=== PATIENT | male | born 1945 | race Caucasian/White ===

== ENCOUNTER 2018-05-17 05:41 | Emergency (ER) | payer MEDICARE ==
[2018-05-17] MEDS ORDERED: Adacel (T-DAP) 0.5 ML SYRINGE ONE (06:09)
== END 2018-05-17 06:35 | disposition home or self-care (01) ==
LOC: BURERS 05:41
DX: S90.414A Abrasion, right lesser toe(s), initial encounter (principal); E11.621 Type 2 diabetes mellitus with foot ulcer; E11.9 Type 2 diabetes mellitus without complications; E78.5 Hyperlipidemia, unspecified; I10 Essential (primary) hypertension; M10.9 Gout, unspecified; F17.220 Nicotine dependence, chewing tobacco, uncomplicated; Z87.442 Personal history of urinary calculi; Z79.82 Long term (current) use of aspirin; Z79.01 Long term (current) use of anticoagulants; Z79.899 Other long term (current) drug therapy; X58.XXXA Exposure to other specified factors, initial encounter
CPT/HCPCS: 90715; 99283

== ENCOUNTER 2018-07-02 14:35 | Inpatient (IN) | payer MEDICARE ==
[2018-07-02] MEDS ORDERED: Acetaminophen 325 MG TAB PO PRN (18:02)
[2018-07-02] MEDS ORDERED: Bisacodyl 5 MG TAB PO PRN (18:02)
[2018-07-02] MEDS ORDERED: Non-Formulary Item 1 EACH (Levothyroxine Sodium [Levothyroxine Sodium] 1 TAB) PO SCH (21:00)
[2018-07-02] MEDS: Carvedilol 3.125 MG TAB PO SCH (21:29)
[2018-07-02] MEDS: Digoxin 0.25 MG TAB PO SCH (21:30)
[2018-07-02] MEDS: Tamsulosin HCl 0.4 MG CAP PO SCH (21:31)
[2018-07-02] MEDS: Ciprofloxacin 500 MG TAB PO SCH (21:31)
[2018-07-02] MEDS: metFORMIN 500 MG TAB PO SCH (21:32)
[2018-07-02] MEDS: Pravastatin Sodium 20 MG TAB PO SCH (21:32)
[2018-07-02] MEDS: Levothyroxine Sodium 25 MCG TAB PO SCH (22:00)
[2018-07-02] MEDS: Levothyroxine Sodium 112 MCG TAB PO SCH (22:00)
[2018-07-02] MEDS: Zolpidem Tartrate 5 MG TAB PO PRN (22:00)
[2018-07-03] MEDS: Losartan Potassium 50 MG TAB PO SCH (09:12)
[2018-07-03] MEDS: Allopurinol 100 MG TAB PO SCH (09:12)
[2018-07-03] MEDS: Ciprofloxacin 500 MG TAB PO SCH ×2 (09:13→21:21)
[2018-07-03] MEDS: Aspirin Chewable 81 MG TAB PO SCH (09:14)
[2018-07-03] MEDS: Furosemide 40 MG TAB PO SCH (09:14)
[2018-07-03] MEDS: Spironolactone 25 MG TAB PO SCH (09:14)
[2018-07-03] MEDS: metFORMIN 500 MG TAB PO SCH ×2 (09:14→21:23)
[2018-07-03] MEDS: Carvedilol 3.125 MG TAB PO SCH ×2 (09:15→21:21)
[2018-07-03] MEDS: Pravastatin Sodium 20 MG TAB PO SCH (21:21)
[2018-07-03] MEDS: Levothyroxine Sodium 25 MCG TAB PO SCH (21:22)
[2018-07-03] MEDS: Tamsulosin HCl 0.4 MG CAP PO SCH (21:22)
[2018-07-03] MEDS: Levothyroxine Sodium 112 MCG TAB PO SCH (21:22)
[2018-07-03] MEDS: Digoxin 0.25 MG TAB PO SCH (21:22)
[2018-07-03] MEDS: Zolpidem Tartrate 5 MG TAB PO PRN (22:14)
[2018-07-04] MEDS: metFORMIN 500 MG TAB PO SCH ×2 (09:47→20:57)
[2018-07-04] MEDS: Losartan Potassium 50 MG TAB PO SCH (09:48)
[2018-07-04] MEDS: Ciprofloxacin 500 MG TAB PO SCH ×2 (09:48→20:56)
[2018-07-04] MEDS: Allopurinol 100 MG TAB PO SCH (09:49)
[2018-07-04] MEDS: Spironolactone 25 MG TAB PO SCH (09:50)
[2018-07-04] MEDS: Furosemide 40 MG TAB PO SCH (09:50)
[2018-07-04] MEDS: Carvedilol 3.125 MG TAB PO SCH ×2 (09:50→20:56)
[2018-07-04] MEDS: Enoxaparin Sodium 100 MG/ML SYRINGE SC SCH ×2 (09:51→20:57)
[2018-07-04] MEDS: Aspirin Chewable 81 MG TAB PO SCH (09:57)
[2018-07-04] MEDS: Pravastatin Sodium 20 MG TAB PO SCH (20:56)
[2018-07-04] MEDS: Tamsulosin HCl 0.4 MG CAP PO SCH (20:56)
[2018-07-04] MEDS: Levothyroxine Sodium 112 MCG TAB PO SCH (20:56)
[2018-07-04] MEDS: Digoxin 0.25 MG TAB PO SCH (20:57)
[2018-07-04] MEDS: Levothyroxine Sodium 25 MCG TAB PO SCH (20:57)
[2018-07-04] MEDS: Zolpidem Tartrate 5 MG TAB PO PRN (21:32)
[2018-07-05] MEDS: Losartan Potassium 50 MG TAB PO SCH (08:20)
[2018-07-05] MEDS: Carvedilol 3.125 MG TAB PO SCH ×2 (08:22→21:27)
[2018-07-05] MEDS: Allopurinol 100 MG TAB PO SCH (08:22)
[2018-07-05] MEDS: metFORMIN 500 MG TAB PO SCH ×2 (08:23→21:27)
[2018-07-05] MEDS: Spironolactone 25 MG TAB PO SCH (08:25)
[2018-07-05] MEDS: Ciprofloxacin 500 MG TAB PO SCH ×2 (08:26→21:27)
[2018-07-05] MEDS: Furosemide 40 MG TAB PO SCH (08:26)
[2018-07-05] MEDS: Enoxaparin Sodium 100 MG/ML SYRINGE SC SCH ×2 (08:27→21:28)
[2018-07-05] MEDS: Pravastatin Sodium 20 MG TAB PO SCH (21:27)
[2018-07-05] MEDS: Tamsulosin HCl 0.4 MG CAP PO SCH (21:27)
[2018-07-05] MEDS: Digoxin 0.25 MG TAB PO SCH (21:28)
[2018-07-05] MEDS: Levothyroxine Sodium 25 MCG TAB PO SCH (21:28)
[2018-07-05] MEDS: Levothyroxine Sodium 112 MCG TAB PO SCH (21:28)
[2018-07-05] MEDS: Zolpidem Tartrate 5 MG TAB PO PRN (21:58)
[2018-07-06] MEDS: Allopurinol 100 MG TAB PO SCH (08:13)
[2018-07-06] MEDS: Carvedilol 3.125 MG TAB PO SCH ×2 (08:14→21:34)
[2018-07-06] MEDS: Ciprofloxacin 500 MG TAB PO SCH ×2 (08:14→21:35)
[2018-07-06] MEDS: Spironolactone 25 MG TAB PO SCH (08:15)
[2018-07-06] MEDS: Furosemide 40 MG TAB PO SCH (08:15)
[2018-07-06] MEDS: Losartan Potassium 50 MG TAB PO SCH (08:16)
[2018-07-06] MEDS: Enoxaparin Sodium 100 MG/ML SYRINGE SC SCH ×2 (08:17→21:35)
[2018-07-06] MEDS: metFORMIN 500 MG TAB PO SCH ×2 (08:17→21:35)
[2018-07-06] MEDS ORDERED: Polyethylene Glycol 3350 17 GM Packet PO PRN (14:40)
[2018-07-06] MEDS: Levothyroxine Sodium 25 MCG TAB PO SCH (21:34)
[2018-07-06] MEDS: Levothyroxine Sodium 112 MCG TAB PO SCH (21:34)
[2018-07-06] MEDS: Pravastatin Sodium 20 MG TAB PO SCH (21:34)
[2018-07-06] MEDS: Digoxin 0.25 MG TAB PO SCH (21:35)
[2018-07-06] MEDS: Tamsulosin HCl 0.4 MG CAP PO SCH (21:35)
[2018-07-06] MEDS: Zolpidem Tartrate 5 MG TAB PO PRN (22:01)
[2018-07-07] MEDS: Allopurinol 100 MG TAB PO SCH (09:24)
[2018-07-07] MEDS: Spironolactone 25 MG TAB PO SCH (09:24)
[2018-07-07] MEDS: metFORMIN 500 MG TAB PO SCH ×2 (09:24→21:25)
[2018-07-07] MEDS: Furosemide 40 MG TAB PO SCH (09:26)
[2018-07-07] MEDS: Ciprofloxacin 500 MG TAB PO SCH ×2 (09:26→21:25)
[2018-07-07] MEDS: Losartan Potassium 50 MG TAB PO SCH (09:27)
[2018-07-07] MEDS: Carvedilol 3.125 MG TAB PO SCH ×2 (09:27→21:25)
[2018-07-07] MEDS: Enoxaparin Sodium 100 MG/ML SYRINGE SC SCH ×2 (09:28→21:26)
[2018-07-07 10:01] LABS: Platelet Count 218 thou/uL (130-400)
[2018-07-07 10:16] LABS: EPI 125 SEC (67-199)
[2018-07-07 11:59] LABS: INR-International Normal Ratio 1.1; Prothrombin Time 14.3 SEC (12.0-14.7)
[2018-07-07] MEDS: Pravastatin Sodium 20 MG TAB PO SCH (21:25)
[2018-07-07] MEDS: Levothyroxine Sodium 25 MCG TAB PO SCH (21:25)
[2018-07-07] MEDS: Digoxin 0.25 MG TAB PO SCH (21:25)
[2018-07-07] MEDS: Tamsulosin HCl 0.4 MG CAP PO SCH (21:25)
[2018-07-07] MEDS: Levothyroxine Sodium 112 MCG TAB PO SCH (21:25)
[2018-07-07] MEDS: Zolpidem Tartrate 5 MG TAB PO PRN (21:54)
[2018-07-08] MEDS: Enoxaparin Sodium 100 MG/ML SYRINGE SC SCH ×2 (08:36→21:31)
[2018-07-08] MEDS: Ciprofloxacin 500 MG TAB PO SCH ×2 (08:38→21:31)
[2018-07-08] MEDS: Allopurinol 100 MG TAB PO SCH (08:38)
[2018-07-08] MEDS: metFORMIN 500 MG TAB PO SCH ×2 (08:38→21:30)
[2018-07-08] MEDS: Losartan Potassium 50 MG TAB PO SCH (08:39)
[2018-07-08] MEDS: Furosemide 40 MG TAB PO SCH (08:39)
[2018-07-08] MEDS: Spironolactone 25 MG TAB PO SCH (08:40)
[2018-07-08] MEDS: Carvedilol 3.125 MG TAB PO SCH ×2 (08:40→21:31)
[2018-07-08] MEDS: Levothyroxine Sodium 25 MCG TAB PO SCH (21:30)
[2018-07-08] MEDS: Levothyroxine Sodium 112 MCG TAB PO SCH (21:30)
[2018-07-08] MEDS: Pravastatin Sodium 20 MG TAB PO SCH (21:30)
[2018-07-08] MEDS: Digoxin 0.25 MG TAB PO SCH (21:30)
[2018-07-08] MEDS: Tamsulosin HCl 0.4 MG CAP PO SCH (21:31)
[2018-07-08] MEDS ORDERED: Zolpidem Tartrate 5 MG TAB ONE (21:56)
[2018-07-08] MEDS: Zolpidem Tartrate 5 MG TAB PO PRN (22:02)
[2018-07-09 05:33] LABS: Hemoglobin 11.6 g/dL (14.0-18.0); Platelet Count 198 thou/uL (130-400)
[2018-07-09] MEDS: Ciprofloxacin 500 MG TAB PO SCH ×2 (09:16→20:32)
[2018-07-09] MEDS: Losartan Potassium 50 MG TAB PO SCH (09:16)
[2018-07-09] MEDS: metFORMIN 500 MG TAB PO SCH ×2 (09:18→20:36)
[2018-07-09] MEDS: Allopurinol 100 MG TAB PO SCH (09:18)
[2018-07-09] MEDS: Carvedilol 3.125 MG TAB PO SCH ×2 (09:18→20:35)
[2018-07-09] MEDS: Spironolactone 25 MG TAB PO SCH (09:18)
[2018-07-09] MEDS: Enoxaparin Sodium 100 MG/ML SYRINGE SC SCH ×2 (09:19→20:36)
[2018-07-09] MEDS: Furosemide 40 MG TAB PO SCH (09:19)
[2018-07-09] MEDS: Digoxin 0.25 MG TAB PO SCH (20:32)
[2018-07-09] MEDS: Levothyroxine Sodium 25 MCG TAB PO SCH (20:35)
[2018-07-09] MEDS: Levothyroxine Sodium 112 MCG TAB PO SCH (20:35)
[2018-07-09] MEDS: Tamsulosin HCl 0.4 MG CAP PO SCH (20:35)
[2018-07-09] MEDS: Pravastatin Sodium 20 MG TAB PO SCH (20:35)
[2018-07-09] MEDS: Zolpidem Tartrate 5 MG TAB PO PRN (22:21)
[2018-07-10] MEDS: Enoxaparin Sodium 100 MG/ML SYRINGE SC SCH ×2 (09:15→21:00)
[2018-07-10] MEDS: Spironolactone 25 MG TAB PO SCH (09:16)
[2018-07-10] MEDS: Carvedilol 3.125 MG TAB PO SCH ×2 (09:16→21:03)
[2018-07-10] MEDS: Ciprofloxacin 500 MG TAB PO SCH ×2 (09:17→21:03)
[2018-07-10] MEDS: metFORMIN 500 MG TAB PO SCH ×2 (09:17→21:03)
[2018-07-10] MEDS: Losartan Potassium 50 MG TAB PO SCH (09:18)
[2018-07-10] MEDS: Allopurinol 100 MG TAB PO SCH (09:18)
[2018-07-10] MEDS: Furosemide 40 MG TAB PO SCH (09:18)
[2018-07-10 14:51] VITALS: BMI 24.2
[2018-07-10] MEDS ORDERED: Digoxin 0.125 MG TAB PO SCH (21:00)
[2018-07-10] MEDS: Levothyroxine Sodium 25 MCG TAB PO SCH (21:02)
[2018-07-10] MEDS: Pravastatin Sodium 20 MG TAB PO SCH (21:03)
[2018-07-10] MEDS: Levothyroxine Sodium 112 MCG TAB PO SCH (21:03)
[2018-07-10] MEDS: Tamsulosin HCl 0.4 MG CAP PO SCH (21:03)
[2018-07-10] MEDS: Zolpidem Tartrate 5 MG TAB PO PRN (22:10)
[2018-07-10] MEDS: Digoxin 0.25 MG TAB PO SCH (22:36)
[2018-07-11 05:24] LABS: Hemoglobin 11.9 g/dL (14.0-18.0); Platelet Count 196 thou/uL (130-400)
[2018-07-11 06:36] VITALS: BP 99/54; TEMP 97.9
[2018-07-11] MEDS: Enoxaparin Sodium 100 MG/ML SYRINGE SC SCH (07:52)
[2018-07-11] MEDS: Carvedilol 3.125 MG TAB PO SCH (07:53)
[2018-07-11] MEDS: Losartan Potassium 50 MG TAB PO SCH (07:54)
[2018-07-11] MEDS: Spironolactone 25 MG TAB PO SCH (07:54)
[2018-07-11] MEDS: Ciprofloxacin 500 MG TAB PO SCH (07:55)
[2018-07-11] MEDS: Allopurinol 100 MG TAB PO SCH (07:55)
[2018-07-11] MEDS: metFORMIN 500 MG TAB PO SCH (07:55)
[2018-07-11] MEDS: Furosemide 40 MG TAB PO SCH (07:56)
== END 2018-07-11 13:22 | disposition home or self-care (01) | DRG 560 ==
LOC: BURMED 15:15
PROVIDERS: ADMIT Family Medicine; ATTEND Family Medicine
DX: Z47.81 Encounter for orthopedic aftercare following surgical amputation (principal); M86.8X7 Other osteomyelitis, ankle and foot; E11.69 Type 2 diabetes mellitus with other specified complication; I25.2 Old myocardial infarction; I10 Essential (primary) hypertension; M10.9 Gout, unspecified; I48.91 Unspecified atrial fibrillation; Z89.421 Acquired absence of other right toe(s); N20.0 Calculus of kidney; Z79.01 Long term (current) use of anticoagulants; Z79.84 Long term (current) use of oral hypoglycemic drugs; Z79.899 Other long term (current) drug therapy; Z85.46 Personal history of malignant neoplasm of prostate
CPT/HCPCS: 36415; 36416; 82565; 85014; 85018; 85049; 85576; 85610; 85730; J1650

== ENCOUNTER 2019-08-05 15:44 | Outpatient (CLI) | payer MEDICARE ==
[2019-08-05 16:26] LABS: INR-International Normal Ratio 2.6
== END 2019-08-05 15:45 | disposition home or self-care (01) ==
LOC: BURLABSP 15:44
PROVIDERS: ATTEND Internal Medicine Cardiovascular Disease
DX: Z51.81 Encounter for therapeutic drug level monitoring (principal); Z79.01 Long term (current) use of anticoagulants
CPT/HCPCS: 85610

== ENCOUNTER 2019-09-05 10:54 | Emergency (ER) | payer MEDICARE ==
[2019-09-05 11:49] LABS: #Monocytes 0.4 thou/uL (0.11-0.59); #Neutrophils 4.5 thou/uL (1.40-6.50); %Basophils 0.8 % (0.0-1.0); %Eosinophils 0.7 % (0.0-10.0); %Lymphocytes 16.3 % (21.0-51.0); %Neutrophils 75.2 % (42.0-75.0); Hemoglobin 14.1 g/dL (14.0-18.0); Mean Corpuscular HGB CONC 31.6 g/dL (32.0-36.0); Mean Corpuscular Hemoglobin 32.4 pg (27.0-31.0); Mean Platelet Volume 6.4 fL (7.4-10.4); Platelet Count 160 thou/uL (130-400); RBC Distribution Width 13.6 % (11.5-14.5); Red Blood Cell (RBC) Count 4.35 mill/uL (4.70-6.10)
[2019-09-05 12:05] LABS: ALT (SGPT) 15 U/L (8-55); AST (SGOT) 11 U/L (5-34); Albumin 3.6 g/dL (3.4-4.8); Alkaline Phosphatase 56 U/L (40-110); Anion Gap 15 mmol/L (10-20); BUN (Urea Nitrogen) 33 mg/dL (8.4-25.7); Bilirubin, Total 0.6 mg/dL (0.2-1.2); Calc. Creatinine Clearance 0 mL/min (70-130); Calcium 9.1 mg/dL (7.8-10.44); Carbon Dioxide 24 mmol/L (23-31); Chloride 102 mmol/L (98-107); Digoxin 1.03 ng/mL (0.8-2.0); Estimated GFR-MDRD 45; Globulin 3.4 g/dL (2.4-3.5); Glucose 85 mg/dL (83-110); Potassium 4.8 mmol/L (3.5-5.1); Sodium 136 mmol/L (136-145)
[2019-09-05 12:23] LABS: Bilirubin Negative (Negative); Blood, Urine Trace (Negative); Clarity Clear (Clear); Glucose, Urine (Dipstick) Negative (Negative); Leukocyte Negative (Negative); Nitrite Negative (Negative); Protein, Urine (Dipstick) Negative (Neg-Trace); Urobilinogen 0.2 mg/dL (Less than 2)
[2019-09-05 12:25] LABS: Bacteria/HPF Rare-Few HPF (None Seen); RBC/HPF 0-3 HPF (0-3); Squamous Epithelial 0-3 HPF (0-3); WBC/HPF 0-3 HPF (0-3)
== END 2019-09-05 13:25 | disposition home or self-care (01) ==
LOC: BURERS 10:54
DX: I95.1 Orthostatic hypotension (principal); F41.9 Anxiety disorder, unspecified; I11.0 Hypertensive heart disease with heart failure; I50.9 Heart failure, unspecified; E78.5 Hyperlipidemia, unspecified; E78.00 Pure hypercholesterolemia, unspecified; I25.2 Old myocardial infarction; M10.9 Gout, unspecified; E11.9 Type 2 diabetes mellitus without complications; F17.220 Nicotine dependence, chewing tobacco, uncomplicated; Z79.899 Other long term (current) drug therapy; Z79.82 Long term (current) use of aspirin; Z79.84 Long term (current) use of oral hypoglycemic drugs
CPT/HCPCS: 36415; 80053; 80162; 81003; 81015; 82553; 84484; 85025; 99284

== ENCOUNTER 2020-03-07 06:28 | Emergency (ER) | payer MEDICARE ==
[2020-03-07 07:06] LABS: Hemoglobin 10.7 g/dL (14.0-18.0); Mean Corpuscular HGB CONC 32.4 g/dL (32.0-36.0); Mean Corpuscular Hemoglobin 35.3 pg (27.0-31.0); Mean Platelet Volume 6.8 fL (7.4-10.4); Platelet Count 212 thou/uL (130-400); RBC Distribution Width 13.9 % (11.5-14.5); Red Blood Cell (RBC) Count 3.02 mill/uL (4.70-6.10); White Blood Cell (WBC) Count 6.2 thou/uL (4.8-10.8)
[2020-03-07 07:18] LABS: PTT 54.5 sec (22.9-36.1)
[2020-03-07 07:19] LABS: D-Dimer Test 0.38 *mcg/mL (0.27-0.43); INR-International Normal Ratio 3.1; Prothrombin Time 32.6 sec (12.0-14.7)
[2020-03-07 07:24] LABS: #Basophils 0.1 thou/uL (0.0-0.2); #Eosinphils 0.1 thou/uL (0.0-0.7); #Monocytes 0.5 thou/uL (0.11-0.59); #Neutrophils 4.5 thou/uL (1.40-6.50); %Basophils 0.8 % (0.0-1.0); %Eosinophils 2.4 % (0.0-10.0); %Lymphocytes 15.7 % (21.0-51.0); %Monocytes 7.3 % (0.0-10.0); %Neutrophils 73.8 % (42.0-75.0); Anisocytosis SLIGHT = 6-15 cells (100X) (0-5/hpf); MDiff Complete? YES; Macrocytosis SLIGHT = 6-15 cells (100X) (0-5/hpf); Platelet Morphology Comment Appears Adequate; Polychromasia SLIGHT = 2-3 cells (100X) (0-2/hpf); Stomatocytes SLIGHT = 2-5 cells (100X) (0-1/hpf)
[2020-03-07 07:25] LABS: ALT (SGPT) 35 U/L (8-55); AST (SGOT) 24 U/L (5-34); Albumin 3.2 g/dL (3.4-4.8); Alkaline Phosphatase 69 U/L (40-110); Anion Gap 15 mmol/L (10-20); BUN (Urea Nitrogen) 22 mg/dL (8.4-25.7); Bilirubin, Total 0.5 mg/dL (0.2-1.2); Calc. Creatinine Clearance 0 mL/min (70-130); Calcium 8.4 mg/dL (7.8-10.44); Carbon Dioxide 25 mmol/L (23-31); Chloride 102 mmol/L (98-107); Globulin 3.6 g/dL (2.4-3.5); Glucose 102 mg/dL (83-110); Potassium 4.9 mmol/L (3.5-5.1); Protein, Total 6.8 g/dL (5.8-8.1); Sodium 137 mmol/L (136-145)
[2020-03-07 07:29] LABS: Digoxin 2.73 ng/mL (0.8-2.0)
[2020-03-07 07:43] LABS: CKMB 1.6 ng/mL (0-6.6)
[2020-03-07 08:03] LABS: Bilirubin Negative (Negative); Blood, Urine Negative (Negative); Clarity Slightly Cloudy (Clear); Glucose, Urine (Dipstick) Negative (Negative); Ketone, Urine Negative (Negative); Leukocyte Negative (Negative); Nitrite Negative (Negative); Protein, Urine (Dipstick) Negative (Neg-Trace); Specific Gravity, Urine 1.015 (1.005-1.030)
[2020-03-07] MEDS ORDERED: Furosemide 100 MG/10 ML VIAL ONE (08:14)
--- NOTE | 2020-03-07 16:52 | RAD ---
PORTABLE CHEST: Date: 03-07-2020 An AP portable film at 0703 is compared with an 02-26-2020 study. FINDINGS: The heart is mildly to moderately enlarged as usual. The size is about the same as before. An AICD is in place. The pulmonary vessels look slightly more congested today than before. I suspect that there is some mild congestive change going on here. There are no large effusions. No lobar infiltrates wer e seen. IMPRESSION: Cardiomegaly and possible mild congestive change. Code T POS: HOME
--- NOTE | 2020-03-07 16:53 | RAD ---
ABDOMEN: Date: 03-07-2020 FINDINGS: A supine view of the abdomen is compared with a 04-15-2019 study. There is no distention of bowel to suggest obstruction. Gas is present in large and small bowel, but no loops are significantly dilated. Various calcifications are seen in the abdomen as before, includi ng a large rounded calcification in the right upper quadrant that is probably a gallstone and at leas t two over the left kidney that are probably renal calculi. The soft tissues showed no acute change. Degenerative changes are present in the spine. There has been effusion of the left hip and there is a right hip arthroplasty in place. IMPRESSION: Nonspecific abdominal findings POS: HOME
== END 2020-03-07 09:25 | disposition short-term general hospital (02) ==
LOC: BURERS 06:28
DX: I11.0 Hypertensive heart disease with heart failure (principal); I50.9 Heart failure, unspecified; D64.9 Anemia, unspecified; R77.8 Other specified abnormalities of plasma proteins; E11.9 Type 2 diabetes mellitus without complications; E78.5 Hyperlipidemia, unspecified; E78.00 Pure hypercholesterolemia, unspecified; I25.2 Old myocardial infarction; M10.9 Gout, unspecified; F17.220 Nicotine dependence, chewing tobacco, uncomplicated; Z79.82 Long term (current) use of aspirin; Z79.84 Long term (current) use of oral hypoglycemic drugs; Z79.899 Other long term (current) drug therapy; Z89.421 Acquired absence of other right toe(s)
CPT/HCPCS: 71045; 74018; 80053; 80162; 81003; 82553; 83880; 84484; 85025; 85379; 85610; 85730; 93005; 96374; J1940

== ENCOUNTER 2020-04-08 19:05 | Emergency (ER) | payer MEDICARE ==
[2020-04-08 19:51] LABS: Bilirubin Small (Negative); Blood, Urine Trace (Negative); Clarity Slightly Cloudy (Clear); Glucose, Urine (Dipstick) 100 mg/dL (Negative); Ketone, Urine 15 mg/dL (Negative); Leukocyte Trace (Negative); Nitrite Negative (Negative); Protein, Urine (Dipstick) 100 mg/dL (Neg-Trace)
[2020-04-08 20:02] LABS: #Eosinphils 0.1 thou/uL (0.0-0.7); #Lymphocytes 0.6 thou/uL (1.20-3.40); #Monocytes 0.4 thou/uL (0.11-0.59); %Basophils 0.9 % (0.0-1.0); %Eosinophils 1.6 % (0.0-10.0); %Lymphocytes 11.5 % (21.0-51.0); %Monocytes 8.6 % (0.0-10.0); %Neutrophils 77.3 % (42.0-75.0); Hemoglobin 10.4 g/dL (14.0-18.0); Mean Corpuscular HGB CONC 33.3 g/dL (32.0-36.0); Mean Corpuscular Hemoglobin 35.9 pg (27.0-31.0); Mean Platelet Volume 6.5 fL (7.4-10.4); Platelet Count 179 thou/uL (130-400); RBC Distribution Width 14.4 % (11.5-14.5); Red Blood Cell (RBC) Count 2.89 mill/uL (4.70-6.10); White Blood Cell (WBC) Count 5.1 thou/uL (4.8-10.8)
[2020-04-08 20:06] LABS: Bacteria/HPF 1+ HPF (None Seen); RBC/HPF 0-3 HPF (0-3); Renal Epithelial 0-3 HPF (None Seen)
[2020-04-08 20:07] LABS: ALT (SGPT) 40 U/L (8-55); AST (SGOT) 33 U/L (5-34); Albumin 3.3 g/dL (3.4-4.8); Alkaline Phosphatase 79 U/L (40-110); Anion Gap 16 mmol/L (10-20); BUN (Urea Nitrogen) 28 mg/dL (8.4-25.7); Bilirubin, Total 0.5 mg/dL (0.2-1.2); Calc. Creatinine Clearance 0 mL/min (70-130); Calcium 8.5 mg/dL (7.8-10.44); Carbon Dioxide 23 mmol/L (23-31); Chloride 102 mmol/L (98-107); Globulin 2.8 g/dL (2.4-3.5); Glucose 164 mg/dL (83-110); Potassium 4.8 mmol/L (3.5-5.1); Protein, Total 6.1 g/dL (5.8-8.1); Sodium 136 mmol/L (136-145)
[2020-04-08 20:17] LABS: MDiff Complete? YES; Macrocytosis SLIGHT = 6-15 cells (100X) (0-5/hpf); Platelet Morphology Comment Appears Adequate
[2020-04-08] MEDS ORDERED: cefTRIAXone\\ROCEPHIN 2 GM VIAL ONE (20:18)
[2020-04-08] MEDS ORDERED: Phenazopyridine HCl 97.5 MG TABLET ONE (20:18)
== END 2020-04-08 20:45 | disposition home or self-care (01) ==
LOC: BURERS 19:05
DX: N39.0 Urinary tract infection, site not specified (principal); I11.0 Hypertensive heart disease with heart failure; I50.9 Heart failure, unspecified; I25.2 Old myocardial infarction; E11.9 Type 2 diabetes mellitus without complications; E78.5 Hyperlipidemia, unspecified; E78.00 Pure hypercholesterolemia, unspecified; F17.220 Nicotine dependence, chewing tobacco, uncomplicated; Z79.899 Other long term (current) drug therapy; Z79.82 Long term (current) use of aspirin; Z79.01 Long term (current) use of anticoagulants; Z79.84 Long term (current) use of oral hypoglycemic drugs
CPT/HCPCS: 51702; 80053; 81003; 81015; 83880; 85025; 87086; 96374; J0696